=== PATIENT | male | born 1965 | race Caucasian/White ===

== ENCOUNTER 2023-02-24 08:35 | Emergency (ER) | payer BC ==
[~2023-02-24] VITALS: Ht 185.4 cm; Wt 118.7 kg
[2023-02-24 08:43] VITALS: TEMP 97.7
[2023-02-24] MEDS ORDERED: HYDR-3965 PO (11:45)
[2023-02-24 11:46] VITALS: BP 148/89; PULSE 75; O2SAT 95
[2023-02-24] MEDS ORDERED: HYDROcodone/acetaminophen 10/325mg tab PO ONE (11:50)
[2023-02-24 11:51] VITALS: RESP 16
== END 2023-02-24 12:20 | disposition home or self-care (01) ==
LOC: ER 08:35
DX: S82.891A Other fracture of right lower leg, initial encounter for closed fracture (principal); X50.1XXA Overexertion from prolonged static or awkward postures, initial encounter; Y93.89 Activity, other specified; Y92.89 Other specified places as the place of occurrence of the external cause; Y99.8 Other external cause status
CPT/HCPCS: 12004; 29515; 73610; 99284